=== PATIENT | male | born 1965 | race African-American/Black ===

== ENCOUNTER 2016-09-25 16:53 | Emergency (ER) | payer BC ==
[~2016-09-25] VITALS: Ht 180.3 cm; Wt 104.3 kg
[2016-09-25 17:25] VITALS: BP 165/107
[2016-09-25] MEDS ORDERED: OXYC-323 PO (17:58)
[2016-09-25] MEDS ORDERED: NAPR500T PO (17:58)
[2016-09-25] MEDS ORDERED: BENZ9GEL MM (17:58)
[2016-09-25] MEDS ORDERED: PENI500T PO (17:58)
[2016-09-25] MEDS ORDERED: DIPHTH,PERTUSS(ACELL),TET TOX 0.5 ML DISP.SYRIN. VAX IM ONE (18:00)
[2016-09-25] MEDS ORDERED: NAPROXEN 500 MG TABLET PO ONE (18:00)
[2016-09-25] MEDS ORDERED: oxyCODONE/APAP 7.5/325 1 TAB TABLET PO ONE (18:00)
[2016-09-25] MEDS ORDERED: PENICILLIN V K 250 MG TABLET. PO ONE (18:00)
--- NOTE | 2016-09-26 00:52 | ED.ADGEN ---
Past Medical History Past Medical History: Diabetes-Type II, Hypertension Past Surgical History: No Surgical History Alcohol Use: None Drug Use: None Adult General Chief Complaint Chief Complaint: DENTAL PROBLEM HPI HPI Patient is a 50 year old man, history of type 2 diabetes mellitus, hypertension , who presents to the emergency department with a complaint of dental pain. Patient states that yesterday she began experiencing pain in his left upper jaw. He states he does have cavities in this area, is a previous dental work performed. He denies any discharge or drainage from the teeth, any fevers or chills, any swelling of the mouth, tongue, lips, any difficulty swallowing or breathing, any nausea or vomiting, any fevers or chills. Patient states that he was given an ibuprofen and an amoxicillin tablet that a customer of his had left over. He denies any other medications, any other exposures, any injuries or complaints. No chest pain, no abdominal pain. He states he is not currently have a dentist. Review of Systems Review of Systems Constitutional: Denies fever or chills. [] Eyes: Denies change in visual acuity. [] HENT: Denies nasal congestion or sore throat. Dental pain. Respiratory: Denies cough or shortness of breath. [] Cardiovascular: Denies chest pain or edema. [] GI: Denies abdominal pain, nausea, vomiting, bloody stools or diarrhea. [] : Denies dysuria. [] Musculoskeletal: Denies back pain or joint pain. [] Integument: Denies rash. [] Neurologic: Denies headache, focal weakness or sensory changes. [] Endocrine: Denies polyuria or polydipsia. [] Lymphatic: Denies swollen glands. [] Psychiatric: Denies depression or anxiety. [] Current Medications Current Medications Current Medications Medications (Trade) Dose Ordered Sig/Lo Start Time Stop Time Status Last Admin Dose Admin Diphtheria/ Tetanus/Acell Pertussis (Boostrix) 0.5 ml ONCE ONCE 09/25/16 18:00 09/25/16 18:01 DC 09/25/16 17:56 0.5 ML Naproxen (Naprosyn) 500 mg 1X ONCE 09/25/16 18:00 09/25/16 18:01 DC 09/25/16 17:55 500 MG Oxycodone/ Acetaminophen (Percocet 7.5/ 325) 1 tab 1X ONCE 09/25/16 18:00 09/25/16 18:01 DC 09/25/16 17:55 1 TAB Penicillin V Potassium (Veetid) 500 mg 1X ONCE 09/25/16 18:00 09/25/16 18:01 DC 09/25/16 17:55 500 MG Allergies Allergies Allergies Coded Allergies Type Severity Reaction Last Updated Verified No Known Drug Allergies 09/25/16 No Physical Exam Physical Exam Constitutional: Well developed, well nourished, no acute distress, non-toxic appearance. [] HENT: Normocephalic, atraumatic, bilateral external ears normal, oropharynx moist, no oral exudates, nose normal. Patient with multiple dental caries noted throughout the mouth, with tooth #15, #2 with severe dental caries and broken down to the gumline, patient with tenderness palpation over tooth #16, noted to have back portion of the tooth missing, patient may have had a previous filling in this area. There is no evidence of abscess formation or induration, no swelling of the surrounding mucosa, normal-appearing oropharynx. Eyes: PERRLA, EOMI, conjunctiva normal, no discharge. [] Neck: Normal range of motion, no tenderness, supple, no stridor. [] Cardiovascular:Heart rate regular rhythm, no murmur, S1, S2, rubs or gallops. [] Lungs & Thorax: Bilateral breath sounds clear to auscultation , no wheezing, rhonchi, rales. No chest or crepitus or tenderness. [] Abdomen: Bowel sounds normal, soft, no tenderness, no masses, no pulsatile masses. [] Neurologic: Alert and oriented X 3, normal motor function, normal sensory function, no focal deficits noted. [] Psychologic: Affect normal, judgement normal, mood normal. [] Current Patient Data Vital Signs Vital Signs Date Time Temp Pulse Resp B/P (MAP) Pulse Ox O2 Delivery O2 Flow Rate FiO2 09/25/16 17:55 16 09/25/16 17:25 98.8 89 100 Room Air 98.8 EKG EKG Not indicated. [] Radiology/Procedures Radiology/Procedures Not indicated. [] Course & Med Decision Making Course & Med Decision Making Pertinent Labs and Imaging studies reviewed. (See chart for details) Patient well-appearing, noted be hypertensive in the emergency department, states he did take his blood pressure medication however he is experiencing pain at this time which is contributing to his blood pressure being elevated. Discussed with patient that he will require dental extraction. He states that he does have dull insurance, will be able to follow-up. He was provided a list of providers. Patient administered a dose of penicillin in the emergency department, also Percocet, as he did get a ride home, patient was given a prescription for penicillin, total of 10 days, a total of 6 Percocet to be used if naproxen, and Anbesol are ineffective at controlling his symptoms. He is given clear and detailed medication instructions, follow-up instructions, and return precautions. Patient voiced understanding and agreement plan as stated, discharged home in stable condition with plan as above. Dragon Disclaimer Dragon Disclaimer This electronic medical record was generated, in whole or in part, using a voice recognition dictation system. Departure Impression: Primary Impression: Pain, dental Disposition: HOME, SELF-CARE Condition: IMPROVED Scripts Penicillin V Potassium (PENICILLIN V POTASSIUM) 500 Mg Tablet 1 TAB PO QID, #40 TAB Prov: RUPINDER SNIDER DO 09/25/16 Oxycodone/Apap 5-325 (PERCOCET 5-325 MG TABLET) 1 Each Tablet 1 TAB PO PRN Q6HRS Y for PAIN, #6 TAB Prov: RUPINDER SNIDER DO 09/25/16 Naproxen (NAPROSYN) 500 Mg Tablet 500 MG PO PRN BID Y for PAIN, #10 TAB Prov: RUPINDER SNIDER DO 09/25/16 Benzocaine (ANBESOL) 9 Gm Gel..gram. 9 GM MM PRN Q6-8HRS Y for DENTAL PAIN, #1 BOTTLE Use as directed on packaging. Prov: RUPINDER SNIDER DO 09/25/16 RUPINDER SNIDER DO Sep 26, 2016 00:52
== END 2016-09-25 18:07 | disposition home or self-care (01) ==
LOC: ER 16:53
DX: K08.89 Other specified disorders of teeth and supporting structures (principal); I10 Essential (primary) hypertension; E11.9 Type 2 diabetes mellitus without complications
CPT/HCPCS: 90471; 90715; 99284-25

== ENCOUNTER → 2016-12-23 | Outpatient (CLI) | payer BC ==
[~2016-12-23] MED LIST: BENZ9GEL MM; NAPR500T PO; OXYC-323 PO; PENI500T PO
--- NOTE | 2016-12-23 09:54 | KCIC ---
INDICATION: Upper extremity weakness and numbness for 2 to 3 months. TECHNIQUE: Cervical spine series including oblique views contains 6 images. No comparison is available. FINDINGS: There is no fracture. Vertebral body height is maintained. There is no malalignment. There is mild endplate spurring. There is no narrowing of the osseous neural foramina IMPRESSION: Degenerative changes in the cervical spine, mild. If further workup is required, consider MRI. Electronically signed by: Aaron Cespedes MD (12/23/2016 9:51 AM) [id number]
== END | disposition home or self-care (01) ==
LOC: KCIC 08:06
PROVIDERS: ATTEND Family Medicine
DX: M47.892 Other spondylosis, cervical region (principal); R20.0 Anesthesia of skin; R53.1 Weakness
CPT/HCPCS: 72050